=== PATIENT | male | born 1985 | race Caucasian/White ===

== ENCOUNTER 2021-02-04 18:31 | Emergency (ER) | payer SELFPAY ==
[~2021-02-04] VITALS: Ht 180.3 cm; Wt 135.0 kg
[2021-02-04 18:43] VITALS: BP 170/100
[2021-02-04] MEDS ORDERED: NAPROXEN 500 MG TABLET PO STA (18:58)
--- NOTE | 2021-02-04 20:32 | RAD ---
XR FINGER(S)_LEFT 2+VIEWS_RT 02/04/2021 8:00 PM INDICATION: Fourth finger tip of the distal end of the proximal interphalangeal joint pain COMPARISON: None available. TECHNIQUE: 3 views of the fourth digit of the left hand are provided. FINDINGS/ IMPRESSION: 1. Focal soft tissue swelling is identified involving the distal phalanx of the fourth digit of the l eft hand. No underlying osseous abnormality. No acute fracture or dislocation. Joint spaces are maint ained. Bone mineralization is within normal limits. Correlate with cellulitis or any soft tissue absc ess. Electronically signed by: Clarissa Fierro MD (02/04/2021 8:29 PM) [facility]
[2021-02-04] MEDS ORDERED: HYDR-2761 PO (20:44)
[2021-02-04] MEDS ORDERED: MUPI22OI2 TP (20:44)
[2021-02-04] MEDS ORDERED: CEPH500C PO (20:44)
--- NOTE | 2021-02-04 20:45 | ED.ADGEN ---
Past Medical History Past Medical History: No Pertinent History Past Surgical History: Tonsillectomy Additional Past Surgical Histo: T&A Smoking Status: Never Smoker Alcohol Use: Occasionally General Adult EDM: Chief Complaint: FINGER INJURY HPI: HPI: Patient is a 35 year old male, accompanied by his , who presents emergency department with complains of pain and swelling to the fourth digit of his left hand for the last 2 days. Patient states he drained a significant amount of pus out of it yesterday and then again this evening but today his finger feels tender from the middle of it all the way to the tip. He denies any known injury. He denies any fever, fatigue, body aches, or chills. He denies any decreased sensation, numbness, or tingling. He currently rates the pain a 2 out of 10 on the pain scale however the pain increases if the area is touched to a 10 out of 10. Review of Systems: Review of Systems: Complete ROS is negative unless otherwise noted in HPI. Current Medications: Current Medications Medications (Trade) Dose Ordered Sig/Erin Start Time Stop Time Status Last Admin Dose Admin Naproxen (Naprosyn) 500 mg 1X STAT 02/04/21 18:58 02/04/21 19:00 DC 02/04/21 19:39 500 MG Allergies: Allergies: Allergies Coded Allergies Type Severity Reaction Last Updated Verified No Known Drug Allergies 02/04/21 No Physical Exam: PE: See Above Constitutional: Well developed, well nourished, no acute distress, non-toxic appearance. [] HENT: Normocephalic, atraumatic, bilateral external ears normal, nose normal. [] Eyes: PERRLA, EOMI, conjunctiva normal, no discharge. [] Neck: Normal range of motion, no stridor. [] Cardiovascular:Heart rate regular rhythm Lungs & Thorax: Respirations even and unlabored, no retractions, no respiratory distress Skin: Warm, dry; erythema and edema to the distal end of the fourth digit of the left hand at the edge of the nailbed and the base of the nailbed consistent with paronychia Extremities: Fourth digit left hand: Tenderness to palpation distal to the PIP, no obvious deformity, no crepitus, cap refill less than 2 seconds, no cyanosis, ROM intact Neurologic: Alert and oriented X 3, normal motor, normal sensory, no focal deficits noted. [] Psychologic: Affect normal, judgement normal, mood normal. [] Current Patient Data: Vital Signs: Vital Signs Date Time Temp Pulse Resp B/P (MAP) Pulse Ox O2 Delivery O2 Flow Rate FiO2 02/04/21 18:43 98.2 89 18 170/100 (123) 98 Room Air 98.2 EKG: EKG: [] Heart Score: C/O Chest Pain: No Risk Scores: Score 0 - 3: 2.5% MACE over next 6 weeks - Discharge Home Score 4 - 6: 20.3% MACE over next 6 weeks - Admit for Clinical Observation Score 7 - 10: 72.7% MACE over next 6 weeks - Early Invasive Strategies Radiology/Procedures: Radiology/Procedures: PROCEDURE: FINGER(S) LEFT XR FINGER(S)_LEFT 2+VIEWS_RT 02/04/2021 8:00 PM INDICATION: Fourth finger tip of the distal end of the proximal interphalangeal joint pain COMPARISON: None available. TECHNIQUE: 3 views of the fourth digit of the left hand are provided. FINDINGS/ IMPRESSION: 1. Focal soft tissue swelling is identified involving the distal phalanx of the fourth digit of the left hand. No underlying osseous abnormality. No acute fracture or dislocation. Joint spaces are maintained. Bone mineralization is within normal limits. Correlate with cellulitis or any soft tissue abscess. Electronically signed by: Clarissa Fierro MD (02/04/2021 8:29 PM) [facility] [] Course & Med Decision Making: Course & Med Decision Making Pertinent Labs and Imaging studies reviewed. (See chart for details) []The patient was seen and interviewed as well as examined at the bedside. The chart was reviewed. The case was discussed. Agree with the plan of care. Dragon Disclaimer: Dragon Disclaimer: This electronic medical record was generated, in whole or in part, using a voice recognition dictation system. Departure Departure Impression: Primary Impression: Paronychia of left ring finger Disposition: HOME / SELF CARE / HOMELESS Condition: STABLE Referrals: OZIEL LEMUS DO (PCP) Patient Instructions: Paronychia, [id number] Additional Instructions: Fill prescription(s) and use as directed. Soak the affected area in epsom salt soaks 3-4x/day and as needed for comfort. You may take tylenol or ibuprofen as needed for pain. Wound recheck in 48 hours. Follow up with your primary care doctor for wound recheck, return to the ER if your symptoms worsen or you develop a fever. Scripts Hydrocodone Bit/Acetaminophen (HYDROCODONE-APAP 5-325 ) 1 Tab Tablet 0.5-1 TAB PO PRN Q6HRS PRN for SEVERE PAIN 7-10, #4 TAB 0 Refills Prov: ELBA GUTIERREZ APRN 02/04/21 Mupirocin (MUPIROCIN OINTMENT) 22 Gm Oint...g. 1 MAX TP TID for WOUND CARE for 7 Days, #1 TUBE 0 Refills Prov: ELBA GUTIERREZ APRN 02/04/21 Cephalexin (CEPHALEXIN) 500 Mg Capsule 1 CAP PO QID for 7 Days, #28 CAP 0 Refills Prov: ELBA GUTIERREZ APRN 02/04/21 ELBA GUTIERREZ APRN February 04, 2021 20:45 JUAN WOLFE I DO February 08, 2021 18:49
== END 2021-02-04 20:56 | disposition home or self-care (01) ==
LOC: ER 18:31
DX: L03.012 Cellulitis of left finger (principal)
CPT/HCPCS: 73140; 99283